=== PATIENT | female | born 1990 | race American Indian/Alaskan Native ===

== ENCOUNTER 2019-12-28 10:14 | Outpatient (CLI) | payer BC ==
--- NOTE | 2019-12-28 12:01 | Ultrasound Report ---
Biophysical profile Ultrasound HISTORY: Arrthmyia. TECHNIQUE: Grayscale and color imaging performed. COMPARISON: None FINDINGS: The fetus received a score of 2 out of 2 for breathing, movement, posture/tone, and AILYN. To dawson score was 8 out of 8. Heart rate during the exam was 156 bpm. IMPRESSION: Normal biophysical profile. Signer Name: Sam Phillip MD Signed: 12/28/2019 11:57 AM Workstation Name: [id number]
== END 2019-12-28 13:00 | disposition home or self-care (01) ==
LOC: APU 10:14 → TRG 10:14 → APU 10:15 → TRG 13:00
PROVIDERS: ATTEND Obstetrics & Gynecology
DX: O36.8320 Maternal care for abnormalities of the fetal heart rate or rhythm, second trimester, not applicable or unspecified (principal); Z3A.26 26 weeks gestation of pregnancy
CPT/HCPCS: 59025; 76819

== ENCOUNTER 2020-03-14 16:19 | Outpatient (CLI) | payer BC, MEDICAID ==
[2020-03-14 19:12] VITALS: BP 130/67
== END 2020-03-14 18:50 | disposition home or self-care (01) ==
LOC: TRG 16:19 → APU 16:20 → TRG 18:50
PROVIDERS: ATTEND Obstetrics & Gynecology
DX: O36.8130 Decreased fetal movements, third trimester, not applicable or unspecified (principal); Z3A.37 37 weeks gestation of pregnancy
CPT/HCPCS: 59025

== ENCOUNTER 2020-03-24 22:34 | Inpatient (IN) | payer BC, MEDICAID ==
[2020-03-25] MEDS ORDERED: LACTATED RINGERS 1,000 ML ONE (01:07)
[2020-03-25] MEDS ORDERED: MINERAL OIL 30 ML ORAL LIQD PO PRN (01:11)
[2020-03-25] MEDS ORDERED: ONDANSETRON 4 MG/2 ML INJ IV PRN (01:11)
[2020-03-25] MEDS ORDERED: ePHEDrine SULFATE 50 MG/1 ML INJ IV PRN (01:11)
[2020-03-25] MEDS ORDERED: TERBUTALINE 1 MG/1 ML INJ SUB-Q PRN (01:11)
[2020-03-25] MEDS ORDERED: LIDOCAINE (2%) 20 MG/1 ML VIAL 20 ML MDV INFILTRATI ONE ×2 (01:11→04:34)
--- NOTE | 2020-03-25 01:23 | History and Physical Report ---
History of Present Illness Date of examination: 03/25/20 Date of admission: 03/25/20 01:08 Chief complaint: Leaking of water from vagina since 10:00 PM. History of present illness: 29 year old female presents to L&D complaining of leaking of clear fluid from vagina since 10:00 PM. Patient denies vaginal bleeding. Patient reports active movement. Patient received care at [facility] and records are available. LMP 06/28/2019. EDC 04/03/2020 (based on LMP and confirmed by 7.5 week US). significant for the following: obesity (BMI 31), cardiac echogenic foci (saw [facility] for arrhythmia and had echo), GH (has been taking Valtrex for suppression since 36 weeks), history of LEEP, hyperthyroidism (taking Methimazole, co-managed with [facility]), vitamin D deficiency (supplemented with vitamin D). labs are as follows: O+, antibody screen negative, rubella immune, hepatitis B surface antigen negative, HIV negative, RPR nonreactive, varicella immune, hemoglobin electrophoresis AA, gonorrhea negative, chlamydia negative, trichomonas negative, MSAFP negative, diabetes screen 98, GBS negative. 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 denies lesions or prodromal symptoms) Family/Genetic History: heart disease, hypertension, cancer, other (seizure disorder, Alzheimers disease) Social history: single - Obstetrical History Expected Date of Delivery: 04/03/20 Actual Gestation: 38 Week(s) 5 Day(s) : 3 Para: 1 Hx # Term Pregnancies: 1 Number of Pregnancies: 0 Spontaneous Abortions: 0 Induced : 1 Number of Living Children: 1 Medications and Allergies Allergies Allergy/AdvReac Type Severity Reaction Status Date / Time No Known Allergies Allergy Verified 03/14/20 16:34 Home Medications Medication Instructions Recorded Confirmed Last Taken Type Cyclobenzaprine [Flexeril 10mg] 10 mg PO TID PRN #20 tablet 03/29/12/28/19 Unknown Rx Ibuprofen [Motrin] 800 mg PO Q8H PRN #20 tablet 03/29/14 12/28/19 Unknown Rx Active Meds: Active Medications Ephedrine Sulfate (Ephedrine Sulfate) 10 mg IV Q2M PRN PRN Reason: Hypotension Oxytocin/Sodium Chloride (Pitocin/Ns 20 Unit/1000ml Drip) 20 units in 1,000 mls @ 125 mls/hr IV DIRECT RICO Lactated Ringer's (Lactated Ringers) 1,000 mls @ 125 mls/hr IV DIRECT RICO Lidocaine (Xylocaine 2%) 20 ml INFILTRATI ONCE ONE Stop: 03/25/20 01:12 Mineral Oil (Mineral Oil) 30 ml PO QHS PRN PRN Reason: Constipation Ondansetron HCl (Zofran) 4 mg IV Q8H PRN PRN Reason: Nausea And Vomiting Terbutaline Sulfate (Brethine) 0.25 mg SUB-Q ONCE PRN PRN Reason: Hyperstimulation/Hypertonicity Review of Systems All systems: negative (leaking of water from vagina, contractions) - Vital Signs Vital signs: Vital Signs Pulse BP 101 H 127/80 03/24/20 23:15 03/24/20 23:15 Temp Pulse Resp BP Pulse Ox 98.2 F 85 18 127/80 99 03/24/20 23:20 03/25/20 01:04 03/24/20 23:20 03/24/20 23:20 03/25/20 01:04 - Physical Exam Abdomen: Positive: normal appearance, soft. Negative: distention, tenderness, guarding, rigidity Genitourinary (Female): Positive: normal external genitalia, normal perenium. Negative: perineal/vulvar lesions (no lesions noted on careful exam with bright light upon admission) Vagina: Positive: other (pooling of clear fluid seen on speculum exam, + fern test) Uterus: Positive: enlarged. Negative: tender Anus/Rectum: Positive: normal perianal skin Extremities: Positive: normal. Negative: tenderness, edema - Obstetrical FHR: category 1 Uterine Contraction Monitor Mode: External Cervical Dilatation: 1 Cervical Effacement Percentage: 100 station: -2 Results All other labs normal. Assessment and Plan A: at 38 weeks, 5 days gestation. Spontaneous rupture of membranes. GBS negative. HSV 2 positive, on Valtrex suppression. P: Admit. Continuous EFM. US to estimate weight. Continue Valtrex suppression of HSV.
[2020-03-25] MEDS ORDERED: valACYclovir 500 MG TAB PO SCH (02:00)
[2020-03-25] MEDS ORDERED: LACTATED RINGERS 1,000 ML IV SCH (02:00)
[2020-03-25] MEDS ORDERED: fentaNYL 100 MCG/2 ML INJ IV PRN (02:40)
--- NOTE | 2020-03-25 03:12 | Ultrasound Report ---
Limited obstetrical ultrasound, 03/25/2020 CLINICAL INFORMATION/INDICATION: Study is performed to evaluate weight. COMPARISON: Obstetrical BPP, 12/28/2019 FINDINGS: There is a single intrauterine . BPD = 9.9 cm = 40 weeks, 6 day(s). Head circumference = 34.9 cm = 40 weeks, 5 day(s). Abdominal circumference = 34.9 cm = 38 weeks, 6 day(s). Femur length = 7.5 cm = 38 weeks, 5 day(s). Overall estimated sonographic age = 39 weeks, 6 day(s). heart rate is 130 beats per minute. Estimated weight is 3743 grams. position is cephalic. Impression: 1. Single living intrauterine with estimated sonographic age of 39 weeks, 6 day(s). Signer Name: Aleshia Whalen MD Signed: 03/25/2020 3:08 AM Workstation Name: [id number]
[2020-03-25 03:43] LABS: Hematocrit 31.9 % (30.3-42.9); Hemoglobin 10.8 gm/dl (10.1-14.3); Mean Corpuscular HGB Conc 34 % (30-34); Mean Corpuscular Volume 83 fl (79-97); Platelet Count 202 K/mm3 (140-440); Red Blood Count 3.86 M/mm3 (3.65-5.03); Red Cell Distribution Width 15.1 % (13.2-15.2)
[2020-03-25] MEDS: OXYTOCIN 20 UNIT/1000ML DRIP 20 UNITS/1,000 ML BAG IV SCH ×2 (06:06→07:10)
[2020-03-25] MEDS ORDERED: WITCH HAZEL/ GLYCERIN PAD TP PRN (07:00)
[2020-03-25] MEDS ORDERED: HYDROcodone/ACETAMINOPHEN 5-325 MG TAB PO PRN (07:00)
[2020-03-25] MEDS ORDERED: miSOPROStol 200 MCG TAB ONE (07:01)
[2020-03-25] MEDS ORDERED: METHYLERGONOVINE MALEATE 0.2 MG/ML VIAL IM NR (07:26)
[2020-03-25] MEDS ORDERED: miSOPROStol 200 MCG TAB PR ONE (07:27)
[2020-03-25] MEDS ORDERED: fentaNYL 100 MCG/2 ML INJ IV NR (07:27)
--- NOTE | 2020-03-25 07:51 | Procedure Note ---
OB Delivery Note - Delivery Date of Delivery: 03/25/20 - Vaginal Delivery presentation: vertex Delivery position: OA Intrapartum events: meconium, hemorrhage, shoulder dystocia Delivery induction: none Delivery augmentation: rupture of membranes Delivery monitor: external FHT, external uterine Route of delivery: Delivery placenta: spontaneous Delivery cord: 3 umbilical vessels Episiotomy: none Delivery laceration: 2nd degree Delivery repair: vicryl Anesthesia: local Delivery comments: Spontaneous vaginal delivery at 06:00 of liveborn female infant weighing 8 lb. 2 oz. over small 2nd degree perineal laceration with apgars of 8/9. Meconium stained amniotic fluid; NICU attended delivery. Left anterior shoulder dystocia, resolved with Sylvie maneuver and delivery of posterior arm. Time from head to body: 30 seconds, timed by MJ Kumar. Baby bulb suctioned right after delivery. Spontaneous cry and respirations. 3 vessel cord double clamped and cut and baby taken to radiant warmer for further suctioning. Cord blood obtained. Spontaneous delivery of intact placenta and membranes by fuentes mechanism. Pitocin to IV fluids after delivery of placenta. EBL 300 cc. Fundus firm and midline. Small second degree perineal laceration repaired using 3-0 vicryl under Lidocaine local. No other lacerations noted. Vaginal sweep negative. Sponge count correct. Instrument count correct. Baby moving all extremities well. Called back to room some time after delivery; patient's bladder was full and uterus had become atonic. Pitocin IV continued; rectal cytotec 800 mcg and Methergine 0.2 mg IM given. US ordered to check for accessory lobe or POC. Stat CBC ordered.
[2020-03-25] MEDS ORDERED: ACETAMINOPHEN 325 MG TAB PO NR (08:09)
[2020-03-25] MEDS: DOCUSATE SODIUM 100 MG CAP PO SCH (09:57)
[2020-03-25 10:35] LABS: Basophils % (Auto) 0.1 % (0.0-1.8); Hematocrit 28.9 % (30.3-42.9); Hemoglobin 9.6 gm/dl (10.1-14.3); Lymphocytes # (Auto) 1.1 K/mm3 (1.2-5.4); Lymphocytes % (Auto) 6.5 % (13.4-35.0); Mean Corpuscular HGB Conc 33 % (30-34); Mean Corpuscular Volume 83 fl (79-97); Platelet Count 176 K/mm3 (140-440); Red Blood Count 3.51 M/mm3 (3.65-5.03)
[2020-03-25] MEDS: IBUPROFEN 600 MG TAB PO SCH ×3 (12:48→18:31)
[2020-03-25] MEDS: LANOLIN/ZINC/DIMETHICONE (LANSINOH) 7 GM TP PRN (12:49)
[2020-03-25] MEDS ORDERED: ACETAMINOPHEN 325 MG TAB PO ONE (13:30)
[2020-03-25] MEDS: FERROUS SULFATE 325 MG TAB PO SCH (15:04)
[2020-03-25 16:22] LABS: Bilirubin,Urine NEG (Negative); Blood,Urine MOD (Negative); Color,Urine Straw (Yellow); Protein,Urine <15 mg/dL mg/dL (Negative); Urobilinogen,Urine < 2.0 mg/dL (<2.0); WBC,Urine < 1.0 /HPF (0.0-6.0)
[2020-03-25] MEDS ORDERED: cefTRIAXone/NS 1 GM/50 ML 1 GM/50 ML BAG IV SCH (17:00)
[2020-03-25 21:38] LABS: Hematocrit 26.2 % (30.3-42.9); Hemoglobin 8.7 gm/dl (10.1-14.3)
[2020-03-25] MEDS ORDERED: MAGNESIUM HYDROXIDE (MOM) ORAL LIQD UDC PO PRN (22:00)
[2020-03-26] MEDS: DOCUSATE SODIUM 100 MG CAP PO SCH ×3 (01:42→21:51)
[2020-03-26] MEDS: IBUPROFEN 600 MG TAB PO SCH ×5 (06:18→21:51)
--- NOTE | 2020-03-26 08:17 | Ultrasound Report ---
ULTRASOUND PELVIS, LIMITED INDICATION / CLINICAL INFORMATION: check for retained POC. TECHNIQUE: Transabdominal. Duplex Color Doppler used: Yes. COMPARISON: None available FINDINGS: UTERUS: Uterus appears mildly enlarged with heterogeneous echogenicity. No echogenic contents within the endometrial canal. No increased vascularity. ADDITIONAL FINDINGS: None. IMPRESSION: 1. No retained products of conception visualized. Signer Name: Lester Verma MD Signed: 03/25/2020 9:11 AM Workstation Name: [id number]
[2020-03-26] MEDS: FERROUS SULFATE 325 MG TAB PO SCH (09:11)
[2020-03-26] MEDS: LANOLIN/ZINC/DIMETHICONE (LANSINOH) 7 GM TP PRN (09:11)
--- NOTE | 2020-03-26 10:55 | Progress Note ---
Assessment and Plan - Patient Problems (1) Status post normal vaginal delivery Current Visit: Yes Status: Acute Plan to address problem: Continue routine PP orders Anticipate d/c home tomorrow (2) Anemia Current Visit: Yes Status: Acute Qualifiers: Anemia type: other cause Other causes of anemia: acute posthemorrhagic Qualified Code(s): D62 - Acute posthemorrhagic anemia Plan to address problem: Asymptomatic Continue oral daily iron supplementation as directed Increase iron rich foods into diet Subjective - Subjective Date of service: 03/26/20 Principal diagnosis: S/P ; anemia Interval history: See admission H & P; OB delivery summary and PP progress notes Patient reports: appetite normal, voiding normally, pain well controlled (with medications), flatus, ambulating normally : doing well, bottle feeding Objective - Vital Signs Latest vital signs: Vital Signs Temp Pulse Resp BP Pulse Ox 03/26/20 08:00 97.8 F 88 18 112/65 98 03/26/20 00:12 97.8 F 86 18 110/64 97 03/25/20 16:13 97.8 F 82 20 127/61 97 03/25/20 12:12 100.5 F H 102 H 20 142/80 95 Intake and Output 03/25/20 03/26/20 03/26/20 23:59 07:59 15:59 Intake Total 360 720 240 Balance 360 720 240 Intake: Oral 360 240 Intake, Free Water 720 Other: Total, Intake Amount 360 240 # Voids Void 1 1 - Exam Breasts: Present: normal Cardiovascular: Present: Regular rate Lungs: Present: Normal air movement Abdomen: Present: soft Uterus: Present: firm, fundal height below umbilicus (U-2) Extremities: Present: normal Incision: Present: other (2nd degree vaginal laceration, healing as expected) - Labs Labs: Abnormal lab results 03/25/20 Range/Units 20:28 Hgb 8.7 L (10.1-14.3) gm/dl Hct 26.2 L (30.3-42.9) %
[2020-03-26] MEDS ORDERED: BENZOCAINE 20% TOP SPRAY 0.5 ML UNIT DOSE MM NR (11:00)
--- NOTE | 2020-03-26 11:03 | Discharge Summary ---
Providers - Providers Date of Admission: 03/25/20 01:08 Date of discharge: 03/27/20 (1200) Attending physician: CATRACHITA CALDERON MD Primary care physician: CATRACHITA CALDERON MD Hospitalization Reason for admission: active labor Delivery: Episiotomy: none Laceration: 2nd degree (healing as expected) Other procedures: none complications: none Discharge diagnosis: IUP at term delivered [place] baby: male Hospital course: See admission H & P; OB delivery summary and PP progress notes Condition at discharge: Stable Disposition: DC-01 TO HOME OR SELFCARE - Discharge Diagnoses (1) Status post normal vaginal delivery Status: Acute (2) Anemia Status: Acute Qualifiers: Anemia type: other cause Other causes of anemia: acute posthemorrhagic Qualified Code(s): D62 - Acute posthemorrhagic anemia Plan - Discharge Medications Prescriptions: Ferrous Sulfate [Feosol 325 MG tab] 325 mg PO BID 30 Days #60 tablet Ibuprofen [Motrin 600 MG tab] 600 mg PO Q6H 7 Days #28 tablet - Provider Discharge Summary Activity: routine, no sex for 6 weeks, no heavy lifting 4 weeks, no strenuous exercise Diet: other (Iron rich diet) Instructions: routine Additional instructions: [] Smoking cessation referral if applicable(refer to patient education folder for contact #) [] Refer to [facility]'s [facility] Booklet Call your doctor immediately for: * Fever > 100.5 * Heavy vaginal bleeding ( >1 pad per hour) * Severe persistent headache * Shortness of breath * Reddened, hot, painful area to leg or breast * Drainage or odor from incision. * Keep vaginal laceration site clean and dry at all times and follow doctor's instructions regarding bathing/showering - Follow up plan Follow up: ROMERO EMERY MD [Staff Physician] - 6 Weeks
[2020-03-27] MEDS: DOCUSATE SODIUM 100 MG CAP PO SCH (10:44)
[2020-03-27] MEDS: FERROUS SULFATE 325 MG TAB PO SCH (10:44)
[2020-03-27 12:55] VITALS: BP 124/74
[2020-03-27] MEDS ORDERED: BENZOCAINE/MENTHOL 20/0.5% TOP SPRAY 56 GM TP PRN (13:29)
[2020-03-27] MEDS: IBUPROFEN 600 MG TAB PO SCH (13:33)
== END 2020-03-27 13:45 | disposition home or self-care (01) | DRG 806 ==
LOC: TRG 22:34 → APU 22:35 → TRG 03-25 01:07 → LD 03-25 01:08 → OB 03-25 09:20
PROVIDERS: ADMIT Obstetrics & Gynecology; ATTEND Obstetrics & Gynecology
PROC: 10E0XZZ Delivery of Products of Conception, External Approach (ICD-10-PCS; principal; 2020-03-25)
PROC: 0KQM0ZZ Repair Perineum Muscle, Open Approach (ICD-10-PCS; 2020-03-25)
PROC: 3E0P7VZ Introduction of Hormone into Female Reproductive, Via Natural or Artificial Opening (ICD-10-PCS; 2020-03-25)
DX: O77.0 Labor and delivery complicated by meconium in amniotic fluid (principal); D62 Acute posthemorrhagic anemia; Z37.0 Single live birth; O98.52 Other viral diseases complicating childbirth; O72.1 Other immediate postpartum hemorrhage; B00.9 Herpesviral infection, unspecified; O99.214 Obesity complicating childbirth; E66.9 Obesity, unspecified; O99.284 Endocrine, nutritional and metabolic diseases complicating childbirth; E55.9 Vitamin D deficiency, unspecified; E05.90 Thyrotoxicosis, unspecified without thyrotoxic crisis or storm; O66.0 Obstructed labor due to shoulder dystocia; O70.1 Second degree perineal laceration during delivery; O90.81 Anemia of the puerperium; Z3A.38 38 weeks gestation of pregnancy
CPT/HCPCS: 36415; 76815; 76816; 76857; 81001; 85014; 85018; 85025; 85027; 86850; 86900; 86901; 87040; 87086; G0378; A6250; J0696; J2590; J3010; J7120

== ENCOUNTER 2020-04-21 01:54 | Observation (INO) | payer BC, MEDICAID ==
--- NOTE | 2020-04-21 02:42 | Emergency Department Report ---
ED Female HPI - General Chief complaint: Vaginal Bleeding Stated complaint: VAGINAL BLEEDING Time Seen by Provider: 04/21/20 02:41 Source: EMS Mode of arrival: Stretcher Limitations: No Limitations - History of Present Illness Initial comments: Patient is a 29-year-old female that presents emergency room with complaints of vaginal bleeding, syncope and fatigue. Patient states she is a G3, . Patient states that she delivered 3 weeks ago here and has been having vaginal bleeding since. Patient states that her vaginal bleeding has been the same until this evening it worsened. Patient states that she had a brief syncopal episode witnessed by her fianc. Patient brought in by EMS. EMS states the patient was blood pressure of 90. Patient given fluids and her blood pressure improved. Patient states she is using multiple pads today. Patient denies chest pain and shortness of breath. Patient denies head injury. Patient patient denies hitting her head. Patient denies seizure. Patient states she has a normal vaginal delivery however she had a lot of vaginal hemorrhaging requiring Methergine and other medications. Patient denies recent travel. Patient denies recent international travel. Patient denies exposure to the novel coronavirus. Patient denies sick contacts. Patient denies fever and chills. Patient denies cough. Patient denies diarrhea. Patient denies coming in contact with anybody with symptoms of the novel coronavirus. MD Complaint: vaginal bleeding -: Gradual Severity scale (0 -10): 0 Consistency: constant, other (Worsening) Improves with: other Worsens with: movement Are you Now?: No (Rest) Associated Symptoms: vaginal bleeding - Related Data Sexually active: No Previous Rx's Medication Instructions Recorded Last Taken Type Cyclobenzaprine [Flexeril 10mg] 10 mg PO TID PRN #20 tablet 03/29/14 Unknown Rx Ibuprofen [Motrin] 800 mg PO Q8H PRN #20 tablet 03/29/14 Unknown Rx Ferrous Sulfate [Feosol 325 MG tab] 325 mg PO BID 30 Days #60 tablet 03/26/20 Unknown Rx Ibuprofen [Motrin 600 MG tab] 600 mg PO Q6H 7 Days #28 tablet 03/26/20 Unknown Rx Allergies Allergy/AdvReac Type Severity Reaction Status Date / Time No Known Allergies Allergy Verified 03/14/20 16:34 ED Review of Systems ROS: Stated complaint: VAGINAL BLEEDING Other details as noted in HPI Constitutional: malaise. denies: chills, fever Eyes: denies: eye pain, eye discharge, vision change ENT: denies: ear pain, throat pain Respiratory: denies: cough, shortness of breath, wheezing Cardiovascular: denies: chest pain, palpitations Endocrine: no symptoms reported Gastrointestinal: denies: abdominal pain, nausea, diarrhea Genitourinary: denies: urgency, dysuria, discharge Musculoskeletal: denies: back pain, joint swelling, arthralgia Skin: denies: rash, lesions Neurological: as per HPI. denies: headache, weakness, paresthesias Psychiatric: denies: anxiety, depression Hematological/Lymphatic: denies: easy bleeding, easy bruising ED Past Medical Hx - Past Medical History Previous Medical History?: Yes Hx Hypertension: No Hx Congestive Heart Failure: No Hx Diabetes: No Hx Deep Vein Thrombosis: No Hx Renal Disease: No Hx Sickle Cell Disease: No Hx Seizures: No Hx Asthma: No Hx COPD: No Hx HIV: No Additional medical history: cervical cancer - Surgical History Past Surgical History?: Yes - Social History Smoking Status: Never Smoker Substance Use Type: Alcohol - Medications Home Medications: Home Medications Medication Instructions Recorded Confirmed Last Taken Type Cyclobenzaprine [Flexeril 10mg] 10 mg PO TID PRN #20 tablet 03/29/14 03/26/20 Unknown Rx Ibuprofen [Motrin] 800 mg PO Q8H PRN #20 tablet 03/29/14 03/26/20 Unknown Rx Ferrous Sulfate [Feosol 325 MG tab] 325 mg PO BID 30 Days #60 tablet 03/26/20 Unknown Rx Ibuprofen [Motrin 600 MG tab] 600 mg PO Q6H 7 Days #28 tablet 03/26/20 Unknown Rx ED Physical Exam - General Limitations: No Limitations General appearance: alert, in no apparent distress - Head Head exam: Present: atraumatic, normocephalic - Eye Eye exam: Present: normal appearance, PERRL, other (Scleral pallor noted) Pupils: Present: normal accommodation - ENT ENT exam: Present: mucous membranes dry - Neck Neck exam: Present: normal inspection - Respiratory Respiratory exam: Present: normal lung sounds bilaterally. Absent: respiratory distress - Cardiovascular Cardiovascular Exam: Present: regular rate, normal rhythm. Absent: systolic murmur, diastolic murmur, rubs, gallop - GI/Abdominal GI/Abdominal exam: Present: soft, normal bowel sounds - Extremities Exam Extremities exam: Present: normal inspection - Back Exam Back exam: Present: normal inspection - Neurological Exam Neurological exam: Present: alert, oriented X3 - Psychiatric Psychiatric exam: Present: normal affect, normal mood - Skin Skin exam: Present: warm, dry, intact, normal color. Absent: rash ED Course Vital Signs 04/21/20 04/21/20 04/21/20 01:59 02:05 02:08 Temperature 98.2 F Pulse Rate 88 Respiratory 16 Rate Blood Pressure 108/58 108/58 Blood Pressure 107/55 [left arm] O2 Sat by Pulse 100 100 Oximetry 04/21/20 04/21/20 04/21/20 02:16 02:30 02:46 Temperature Pulse Rate 97 H 87 89 Respiratory 16 16 14 Rate Blood Pressure 107/55 107/55 107/55 Blood Pressure [left arm] O2 Sat by Pulse 100 100 99 Oximetry 04/21/20 04/21/20 04/21/20 03:18 03:31 04:21 Temperature Pulse Rate 81 82 98 H Respiratory 19 14 Rate Blood Pressure 107/55 107/55 107/55 Blood Pressure [left arm] O2 Sat by Pulse 100 100 Oximetry 04/21/20 04:31 Temperature Pulse Rate 91 H Respiratory 15 Rate Blood Pressure 118/68 Blood Pressure [left arm] O2 Sat by Pulse 100 Oximetry - Reevaluation(s) Reevaluation #1: I discussed all results with patient. I discussed plan of care with patient. Patient agrees with plan of care and admission. Patient to be admitted to the hospitalist service. 04/21/20 04:18 - Consultations Consultation #1: I discussed case with PANTOGRAPH OPERATOR, Dr. Burton. Dr. Burton agrees with admission to mother-baby. Bridge orders will be placed 04/21/20 04:18 ED Medical Decision Making - Lab Data Result diagrams: 04/21/20 03:13 04/21/20 03:13 - Medical Decision Making Patient is a 29-year-old female that presents emergency room for vaginal bleeding. Patient has been bleeding for the last 3 weeks. Patient states day 1 she had a vaginal hemorrhage and required Cytotec and Methergine. Patient has been bleeding since she was discharged from the hospital. Patient states today her vaginal bleeding increased and she had a syncopal episode. Patient was brought in by EMS and EMS found the patient to be hypotensive. Patient's given a liter of fluid by EMS. Patient required another liter of fluids in the ER in order to bring her blood pressure up. Patient continued to have vaginal bleeding with the vaginal bleeding slowed while in the ER. Patient had labs done and were essentially unremarkable except for anemia. Patient admitted to the PANTOGRAPH OPERATOR team for observation. - Differential Diagnosis Hypotension, anemia, vaginal hemorrhage. Critical Care Time: Yes Critical care time in (mins) excluding proc time.: 35 Critical care attestation.: If time is entered above; I have spent that time in minutes in the direct care of this critically ill patient, excluding procedure time. Critical Care Time: 35 minutes ED Disposition Clinical Impression: hemorrhage of vagina, Vaginal bleeding Hypotension Qualifiers: Hypotension type: unspecified hypotension type Qualified Code(s): I95.9 - Hypotension, unspecified Anemia Qualifiers: Anemia type: unspecified type Qualified Code(s): D64.9 - Anemia, unspecified Syncope Qualifiers: Syncope type: unspecified Qualified Code(s): R55 - Syncope and collapse Disposition: -09 OP ADMIT IP TO THIS HOSP Is pt being admited?: Yes Does the pt Need Aspirin: No Condition: Critical Time of Disposition: 04:33
[2020-04-21] MEDS ORDERED: SODIUM CHLORIDE 0.9% 1000 ML 1,000 ML IV ONE (03:20)
[2020-04-21 03:32] LABS: Basophils % (Auto) 0.3 % (0.0-1.8); Eosinophils # (Auto) 0.1 K/mm3 (0.0-0.4); Eosinophils % (Auto) 1.3 % (0.0-4.3); Hematocrit 30.3 % (30.3-42.9); Hemoglobin 9.7 gm/dl (10.1-14.3); Lymphocytes # (Auto) 1.8 K/mm3 (1.2-5.4); Lymphocytes % (Auto) 19.1 % (13.4-35.0); Mean Corpuscular HGB Conc 32 % (30-34); Mean Corpuscular Volume 81 fl (79-97); Monocytes # (Auto) 0.6 K/mm3 (0.0-0.8); Monocytes % (Auto) 6.6 % (0.0-7.3); Platelet Count 249 K/mm3 (140-440); Red Blood Count 3.74 M/mm3 (3.65-5.03); Red Cell Distribution Width 15.9 % (13.2-15.2)
[2020-04-21 03:54] LABS: Alanine Aminotransferase 30 units/L (7-56); Albumin 3.7 g/dL (3.9-5); BUN/Creatinine Ratio 25; Blood Urea Nitrogen 15 mg/dL (7-17); Calcium 8.6 mg/dL (8.4-10.2); Hemolysis Index 4
[2020-04-21 07:35] LABS: Hematocrit 26.7 % (30.3-42.9); Hemoglobin 8.5 gm/dl (10.1-14.3); Mean Corpuscular HGB Conc 32 % (30-34); Mean Corpuscular Volume 80 fl (79-97); Platelet Count 243 K/mm3 (140-440); Red Blood Count 3.33 M/mm3 (3.65-5.03); Red Cell Distribution Width 15.8 % (13.2-15.2)
[2020-04-21 12:45] LABS: Hematocrit 27.6 % (30.3-42.9); Hemoglobin 8.8 gm/dl (10.1-14.3)
[2020-04-21 16:09] VITALS: BP 109/62
== END 2020-04-21 17:30 | disposition home or self-care (01) ==
LOC: ED 01:54 → OB 04:29
PROVIDERS: ADMIT Obstetrics & Gynecology; ATTEND Obstetrics & Gynecology
DX: O72.1 Other immediate postpartum hemorrhage (principal); N93.9 Abnormal uterine and vaginal bleeding, unspecified; O90.89 Other complications of the puerperium, not elsewhere classified; I95.9 Hypotension, unspecified; R55 Syncope and collapse; O90.81 Anemia of the puerperium; D64.9 Anemia, unspecified; Z85.41 Personal history of malignant neoplasm of cervix uteri
CPT/HCPCS: 36415; 80053; 85014; 85018; 85025; 85027; 86850; 86900; 86901; 96360; 99291; G0378; J7030

== ENCOUNTER 2020-04-25 07:46 | Day surgery (SDC) | payer BC, MEDICAID ==
[~2020-04-25 07:46] MED LIST: LACTATED RINGERS 1,000 ML IV SCH; MIDAZOLAM 2 MG/2 ML INJ IV NR
--- NOTE | 2020-04-25 09:04 | Anesthesia Consultation ---
Anesthesia Consult and Med Hx Date of service: 04/25/20 - Airway Anesthetic Teeth Evaluation: Good ROM Head & Neck: Adequate Mental/Hyoid Distance: Adequate Mallampati Class: Class III Intubation Access Assessment: Possibly Difficult - Pulmonary Exam CTA: Yes - Cardiac Exam Cardiac Exam: RRR - Pre-Operative Health Status ASA Pre-Surgery Classification: ASA2 Proposed Anesthetic Plan: General - Pulmonary Hx Smoking: No Hx Respiratory Symptoms: No - Cardiovascular System Hx Hypertension: No Hx Heart Attack/AMI: No Hx Percutaneous Transluminal Coronary Angioplasty (PTCA): No - Central Nervous System CVA: No - Gastrointestinal Hx Gastroesophageal Reflux Disease: No - Endocrine Hx Renal Disease: No Hx Liver Disease: No Hx Insulin Dependent Diabetes: No Hx Non-Insulin Dependent Diabetes: No Hx Thyroid Disease: No - Hematic Hx Anemia: Yes - Other Systems Hx Obesity: No - Additional Comments Anesthesia Medical History Comments: No hx anesthetic complications. D&C for retained placenta.
[2020-04-25] MEDS ORDERED: ONDANSETRON 4 MG/2 ML INJ IV PRN (09:05)
[2020-04-25] MEDS ORDERED: HYDROmorphone 1 MG/1 ML INJ IV PRN (09:05)
--- NOTE | 2020-04-25 09:05 | Anesthesia Day of Surgery ---
Anesthesia Day of Surgery - Day of Surgery Patient Examined: Yes Patient H&P Reviewed: Yes Patient is NPO: Yes
[2020-04-25 09:30] LABS: Hematocrit 26.2 % (30.3-42.9); Hemoglobin 8.3 gm/dl (10.1-14.3); Mean Corpuscular HGB Conc 32 % (30-34); Mean Corpuscular Volume 81 fl (79-97); Platelet Count 297 K/mm3 (140-440); Red Blood Count 3.25 M/mm3 (3.65-5.03); Red Cell Distribution Width 16.4 % (13.2-15.2)
--- NOTE | 2020-04-25 09:53 | History and Physical Report ---
History of Present Illness Date of examination: 04/25/20 History of present illness: Pt is here about a month after her and is still having VB. Her Hgn was observed and is stable but U/S in the office yesterday showed a 4x5 cm area of retained POCs. Last Hgn today was 8.3. No anemic sxs. As a result, pt is her e for D&C. Past History Past Medical History: other (vit b12 def, HSV) Past Surgical History: other (TAB x 1, LEEP, pyloric stenosis repair.) Social history: no significant social history - Obstetrical History : 3 Medications and Allergies Allergies Allergy/AdvReac Type Severity Reaction Status Date / Time No Known Allergies Allergy Verified 04/24/20 12:28 Home Medications Medication Instructions Recorded Confirmed Last Taken Type Ferrous Sulfate [Feosol 325 MG tab] 325 mg PO BID 30 Days #60 tablet 04/21/20 04/24/20 Unknown Rx Active Meds: Active Medications Hydromorphone HCl (Dilaudid) 0.5 mg IV Q10MIN PRN PRN Reason: Pain , Severe (7-10) Lactated Ringer's (Lactated Ringers) 1,000 mls @ 100 mls/hr IV DIRECT RICO Stop: 04/25/20 23:59 Midazolam HCl (Versed) 2 mg IV PREOP NR Stop: 04/25/20 23:59 Ondansetron HCl (Zofran) 4 mg IV ONCE PRN PRN Reason: Nausea And Vomiting Review of Systems All systems: negative (except HPI) - Physical Exam Cardiovascular: Regular rate, No murmurs Lungs: Positive: Clear to auscultation, Normal air movement Abdomen: Positive: normal appearance, soft Genitourinary (Female): Positive: normal external genitalia Vulva: both: normal Vagina: Positive: normal moisture Uterus: Positive: enlarged (globular bulky uterus.) Adnexa: both: normal Results Result Diagrams: 04/25/20 09:10 Abnormal lab results 04/25/20 Range/Units 09:10 RBC 3.25 L (3.65-5.03) M/mm3 Hgb 8.3 L (10.1-14.3) gm/dl Hct 26.2 L (30.3-42.9) % MCH 26 L (28-32) pg RDW 16.4 H (13.2-15.2) % All other labs normal. Assessment and Plan - Patient Problems (1) Retained products of conception Current Visit: Yes Status: Acute Plan to address problem: PT counseled and consented for D&C. Will do under U/S guidance and will try to use just suction first. IF not enough, then will use sharp currette. Patient fully consented for the surgery. Risks, benefits, and alternatives were all discussed with the patient including risk of bleeding, infection, and potential for injury. Patient understands and accepts these risks. Patient agrees to proceed with surgery. All questions were answered. (2) Vaginal bleeding Current Visit: No Status: Acute
[2020-04-25] MEDS ORDERED: propofoL 200 MG/20 ML VIAL IV ONE (10:05)
[2020-04-25] MEDS ORDERED: METHYLERGONOVINE MALEATE 0.2 MG/ML VIAL IM ONE ×2 (10:26→10:37)
[2020-04-25] MEDS ORDERED: SILVER NITRATE APPLICATOR 1 EA TP ONE ×2 (10:26→11:08)
[2020-04-25] MEDS ORDERED: ONDANSETRON 4 MG/2 ML INJ ONE (10:30)
[2020-04-25] MEDS ORDERED: fentaNYL 100 MCG/2 ML INJ ONE (10:30)
[2020-04-25] MEDS ORDERED: SODIUM CHLORIDE 0.9% IRR 1,500 ML BOTTLE IR ONE (10:38)
--- NOTE | 2020-04-25 11:00 | Post Operative Note ---
Date of procedure: 04/25/20 Pre-op diagnosis: Retained products of conception Post-op diagnosis: same Findings: Positive products of conception were able to be suctioned and were visible in the suction curette. Ultrasound at the bedside at the beginning of the case showed the retained products in the uterus and after the suction curettage was done, no additional products of conception were visible on ultrasound. Procedure: Indication: 29-year-old who is about a month status post a spontaneous vaginal delivery is here for vaginal bleeding and retained products of conception. Findings: Positive products of conception were suctioned. Procedure: Suction D&C with ultrasound assistance. Patient taken to the operating room and prepped and draped in usual fashion. Ultrasound done first to show the products of conception. A single-tooth tenaculum was placed on the anterior lip of the cervix. An 14 [place] suction catheter was chosen. Suction curette placed in the endometrial cavity. Placement confirmed with ultrasound. Suction curettage was performed until no more products of conception were able to be suctioned out and no more active bleeding was noted. A dose of Methergine was required to control her bleeding. Bimanual exam was done at the end of the case and the uterus palpated firm. It palpated globular at the beginning of the case. Ultrasound was done again and the products of conception that were noted at the beginning of the case were now gone with no evidence of any further retained products. Single-tooth tenaculum was removed from the anterior lip of the cervix and good hemostasis noted throughout. The procedure was concluded at this point. Patient tolerated procedure well. All instrument and lap counts were correct. Patient taken to the recovery in stable condition. Anesthesia: GETA Surgeon: DANIEL DAY Estimated blood loss: other (400 cc of blood and retained products were suctioned) Pathology: list (products of conception) Specimen disposition: to lab Condition: stable Disposition: PACU
--- NOTE | 2020-04-25 11:03 | Short Stay Summary ---
Short Stay Documentation Date of service: 04/25/20 Narrative H&P: Patient presents today for a scheduled suction D&C for retained products of conception status post vaginal delivery about a month ago. Surgery went well without any difficulty. Patient sent home in stable condition and advised to follow-up in the office 2 weeks postop - History H&P: dictated Social history: no significant social history - Allergies and Medications Current Medications: Allergies No Known Allergies Allergy (Verified 04/24/20 12:28) Home Medications Medication Instructions Recorded Confirmed Last Taken Type Ferrous Sulfate [Feosol 325 MG tab] 325 mg PO BID 30 Days #60 tablet 04/21/20 04/24/20 Unknown Rx Active Medications Hydromorphone HCl (Dilaudid) 0.5 mg IV Q10MIN PRN PRN Reason: Pain , Severe (7-10) Lactated Ringer's (Lactated Ringers) 1,000 mls @ 100 mls/hr IV DIRECT RICO Stop: 04/25/20 23:59 Midazolam HCl (Versed) 2 mg IV PREOP NR Stop: 04/25/20 23:59 Ondansetron HCl (Zofran) 4 mg IV ONCE PRN PRN Reason: Nausea And Vomiting - Disposition Condition at discharge: Stable Disposition: DC-01 TO HOME OR SELFCARE - Discharge Diagnoses (1) Retained products of conception Status: Acute (2) Vaginal bleeding Status: Acute Short Stay Discharge Plan Follow up with: NAEEM FINLEY MD [Primary Care Provider] - 14 Days
[2020-04-25 11:30] VITALS: BP 113/49
--- NOTE | 2020-04-25 12:13 | Ultrasound Report ---
Pelvic Ultrasound HISTORY: DNC. TECHNIQUE: Grayscale and color imaging performed. COMPARISON: Pelvic ultrasound from 04/21/2020 IMPRESSION: Ultrasound guidance provided for D and C. Please refer to the operative note for complete details. Signer Name: Sam Phillip MD Signed: 04/25/2020 12:09 PM Workstation Name: [id number]
--- NOTE | 2020-04-25 12:55 | Post Anesthesia Evaluation ---
- Post Anesthesia Evaluation Patient Participated: Yes Airway Patent: Yes Stable Respiratory Function: Yes Nausea/Vomiting: No Temp > 96.8F: Yes Pain Manageable: Yes Adequeate Hydration: Yes Anesthesia Complications: No
== END 2020-04-25 07:47 | disposition home or self-care (01) ==
LOC: OR 07:46
PROVIDERS: ATTEND Obstetrics & Gynecology
DX: O72.1 Other immediate postpartum hemorrhage (principal); N93.8 Other specified abnormal uterine and vaginal bleeding; D64.9 Anemia, unspecified; Z79.899 Other long term (current) drug therapy; Z98.890 Other specified postprocedural states; Z85.41 Personal history of malignant neoplasm of cervix uteri
CPT/HCPCS: 36415; 59160; 76998; 85027; 86850; 86900; 86901; 88305; J2210; J2250; J2405; J2704; J3010; J7120; 76857